=== PATIENT | male | born 1940 | race Caucasian/White ===

== ENCOUNTER 2020-04-09 07:10 | Day surgery (SDC) | payer MEDICARE ==
[2020-04-08 13:09] VITALS: BMI 23.0
[2020-04-09 09:07] VITALS: BP 92/65; TEMP 98
[2020-04-09] MEDS ORDERED: FLU VACC QS2020-21(65YR UP)/PF 240 MCG/0.7 ML SYRINGE IM ONE (13:45)
--- NOTE | 2020-04-09 15:29 | RAD ---
PROCEDURE: XR Lumbar Punct Only W/Fluoro PROVIDED CLINICAL HISTORY: Ataxia. High volume lumbar puncture was requested with removal of 20 mL of cerebral spinal fluid. Pat ient was to be evaluated before and after the procedure by physical therapy. COMPARISON: None TECHNIQUE: The procedure including the risks and complications were explained to the patient, and informed conse nt was obtained. Patient was placed on the fluoroscopy table in the prone position. The L5-S1 level was marked, and the area was meticulously prepped and draped in usual sterile fashion. The skin and s ubcutaneous tissues were infiltrated with buffered 1% lidocaine for local anesthesia. A 20-gauge spinal needle was advanced into the thecal sac utilizing fluoroscopic guidance at the L5-S 1 level. The inner stylette was removed with a return of clear cerebral spinal fluid. Opening pressure of 12 cm of water was obtained. Approximately 20 mL of cerebrospinal fluid was aspirated as requested. A closing pressure of 9 cm of water was then obtained. The inner stylette was replaced, and the needle was removed. Hemostasis was achieved with direct pres sure, and a dry sterile dressing was placed. The patient tolerated the procedure well and without immediate complication. Patient was transported to radiology nurses holding area for further monitoring prior to discharge. Patient was evaluated by physical therapy before and after lumbar puncture procedure. Fluoroscopy: Time-0.4 minutes Dose-47.9 microGY meter squared IMPRESSION: 1. Technically successful high volume lumbar puncture as requested. 2. Opening pressure of 12 cm of water was obtained with a closing pressure of 9 cm of water.
== END 2020-04-09 10:10 | disposition home or self-care (01) ==
LOC: RAD 07:10
PROVIDERS: ATTEND Neurological Surgery
PROC: 009 Central Nervous System and Cranial Nerves, Drainage (ICD-10-PCS; principal; 2020-04-09)
DX: G91.2 (Idiopathic) normal pressure hydrocephalus (principal); E03.9 Hypothyroidism, unspecified; E78.5 Hyperlipidemia, unspecified; I48.91 Unspecified atrial fibrillation; N40.0 Benign prostatic hyperplasia without lower urinary tract symptoms; M19.90 Unspecified osteoarthritis, unspecified site; M10.9 Gout, unspecified; J30.2 Other seasonal allergic rhinitis; Z79.01 Long term (current) use of anticoagulants; Z79.899 Other long term (current) drug therapy; Z88.1 Allergy status to other antibiotic agents; Z87.891 Personal history of nicotine dependence; Z95.0 Presence of cardiac pacemaker
CPT/HCPCS: 62270